=== PATIENT | female | born 1975 ===

== ENCOUNTER 2018-12-02 18:22 | Emergency (ER) | payer OTHER ==
--- NOTE | 2018-12-02 18:42 | ED PDOC ---
HPI: Back Time Seen by Provider: 12/02/18 18:29 Chief Complaint (Nursing): Back Pain Chief Complaint (Provider): Back Pain History Per: Patient History/Exam Limitations: no limitations Onset/Duration Of Symptoms: Days (x1) Current Symptoms Are (Timing): Still Present Additional Complaint(s): Patient is a 43 y/o female with no PMHx who presents to the ED for evaluation of mid, lower back pain onset yesterday. Patient slipped down wooden steps and landed on her back. Patient reports bruising and tenderness on her mid, lower back. Patient denies leg pain, dizziness, headaches, or loss of consciousness. Patient states she took Tylenol for pain relief. PCP: None Provided Past Medical History Reviewed: Historical Data, Nursing Documentation, Vital Signs Vital Signs: Last Vital Signs Temp 97.3 F L 12/02/18 18:24 Pulse 72 12/02/18 18:24 Resp 18 12/02/18 18:24 BP 120/78 12/02/18 18:24 Pulse Ox 98 12/02/18 18:24 - Medical History PMH: No Chronic Diseases - Surgical History Surgical History: No Surg Hx - Family History Family History: States: No Known Family Hx - Home Medications Home Medications: Ambulatory Orders Medication Instructions Recorded Cyclobenzaprine [Flexeril] 10 mg PO TID #27 tab 12/02/18 Diclofenac Potassium 50 mg PO BID #20 tablet 12/02/18 - Allergies Allergies/Adverse Reactions: Allergies Allergy/AdvReac Type Severity Reaction Status Date / Time No Known Allergies Allergy Verified 12/02/18 18:24 Review of Systems ROS Statement: Except As Marked, All Systems Reviewed And Found Negative Musculoskeletal: Positive for: Back Pain (mid, lower). Negative for: Leg Pain Skin: Positive for: Bruising (on mid, lower back) Neurological: Negative for: Headache, Dizziness, Other (loss of consciousness) Physical Exam - Reviewed Nursing Documentation Reviewed: Yes Vital Signs Reviewed: Yes - Physical Exam Appears: Positive for: No Acute Distress Head Exam: Positive for: ATRAUMATIC, NORMAL INSPECTION, NORMOCEPHALIC Skin: Positive for: Normal Color, Warm, DRY Eye Exam: Positive for: EOMI, Normal appearance, PERRL Neck: Positive for: Normal, Painless ROM, Supple Cardiovascular/Chest: Positive for: Regular Rate, Rhythm. Negative for: Murmur Respiratory: Positive for: Normal Breath Sounds (clear auscultation bilaterally). Negative for: Respiratory Distress Gastrointestinal/Abdominal: Positive for: Normal Exam, Soft. Negative for: Tenderness Back: Positive for: Normal Inspection, Vertebral Tenderness (at L4-L5; central line), Muscle Spasm (bilateral paraspinal), Other (mild bruising at L4-L5 of central, lower back; no ridicular; negative lumbar axial loading) Extremity: Positive for: Normal ROM (Upper/Lower), Other (20 degree straight leg raise positive in the left leg). Negative for: Pedal Edema, Deformity Neurologic/Psych: Positive for: Alert, Oriented. Negative for: Motor/Sensory Deficits - ECG O2 Sat by Pulse Oximetry: 98 (RA) Pulse Ox Interpretation: Normal Medical Decision Making Medical Decision Making: Time: 1839 Impression: Acute Back Pain Plan: CT Lumbar Spine w/o Contrast Urine Flexeril 10 mg PO Toradol 60 mg IM Tylenol 650 mg PO Time: 2008 CT Lumbar Spine FINDINGS: ALIGNMENT: Bony alignment is anatomic. There is minimal anterior marginal osteophytic spurring throughout the lumbar vertebrae. The apophyseal facet articulations appeared intact bilaterally throughout. DISCS/DEGENERATIVE CHANGES: T12/L1: No significant central canal or neural foraminal stenosis. L1/L2: No significant central canal or neural foraminal stenosis. L2/L3: No significant central canal or neural foraminal stenosis. L3/4: No significant central canal or neural foraminal stenosis. L4/5: No significant central canal or neural foraminal stenosis. L5/S1: No significant central canal or neural foraminal stenosis. BONES: No acute fracture or aggressive appearing osseous lesion. SOFT TISSUES: The soft tissues are unremarkable. MISCELLANEOUS: No identification of herniated nucleus pulposus. IMPRESSION: 1. No acute lumbar spine abnormality. Electronically signed on Dec 02, 2018 8:09:04 PM EST by: Go Canchola M.D., RADHA Certified By [facility] Fellowship Trained MRI and CT Specialist Pt advised of CT findings above; pt is stable for discharge and was able to ask questions pirior to her didscharge Scribe Attestation: Documented by Mino Quinn, acting as a scribe for POLA Rajput. Provider Scribe Attestation: All medical record entries made by the Scribe were at my direction and personally dictated by me. I have reviewed the chart and agree that the record accurately reflects my personal performance of the history, physical exam, medical decision making, and the department course for this patient. I have also personally directed, reviewed, and agree with the discharge instructions and disposition. Disposition - Clinical Impression Clinical Impression: Low back pain - Patient ED Disposition Is Patient to be Admitted: No Doctor Will See Patient In The: Office Counseled Patient/Family Regarding: Studies Performed, Diagnosis, Need For Followup, Rx Given - Disposition Disposition: Routine/Home Disposition Time: 20:16 Condition: STABLE Additional Instructions: Follow up with your PMD in 48-72 hours Prescriptions: Cyclobenzaprine [Flexeril] 10 mg PO TID #27 tab Diclofenac Potassium 50 mg PO BID #20 tablet Instructions: Low Back Pain (DC), Low Back Pain in Adults Forms: [facility] (Faroese)
[2018-12-02 20:43] VITALS: BP 132/68; PULSE 74; RESP 16; TEMP 98; O2SAT 100
--- NOTE | 2018-12-03 09:30 | CT ---
Date of service: 12/02/2018 PROCEDURE: CT Lumbar Spine without contrast HISTORY: S/P SLIP AND FALL WITH SWELLING ON LMBAR SPINE COMPARISON: None available. TECHNIQUE: Axial computed tomography images were obtained of the lumbar spine without the use of intravenous contrast. Coronal and sagittal reformatted images were created and reviewed. Radiation dose: Total exam DLP = 522.97 mGy-cm. This CT exam was performed using one or more of the following dose reduction techniques: Automated exposure control, adjustment of the mA and/or kV according to patient size, and/or use of iterative reconstruction technique. FINDINGS: VERTEBRAE: Unremarkable. No fracture. Normal alignment. DISCS/SPINAL CANAL/NEURAL FORAMINA: L1-2: Unremarkable. L2-3: Unremarkable. L3-4: Broad-based disc bulge with dorsal ligamentous hypertrophy resulting in mild central canal stenosis. L4-5: Broad-based disc bulge with dorsal ligamentous hypertrophy resulting in mild central canal stenosis. L5-S1: Unremarkable. PARASPINAL SOFT TISSUES: Unremarkable. OTHER FINDINGS: None. IMPRESSION: No acute fracture. Mild lower lumbar degenerative change.
== END 2018-12-02 20:41 | disposition home or self-care (01) ==
LOC: H.ER 18:22
DX: M54.5 Low back pain (principal); W10.9XXA Fall (on) (from) unspecified stairs and steps, initial encounter
CPT/HCPCS: 72131; 81025; 96372; 99282; J1885

== ENCOUNTER 2019-01-13 21:49 | Emergency (ER) | payer OTHER ==
[2019-01-13 21:56] VITALS: BP 122/73; PULSE 71; RESP 16; TEMP 98.2; O2SAT 99
--- NOTE | 2019-01-13 22:04 | ED PDOC ---
HPI: CCC, URI, Sore Throat Time Seen by Provider: 01/13/19 21:57 Chief Complaint (Nursing): ENT Problem History Per: Patient Additional Complaint(s): Pt. states today she developed cough, congestion, sneezing, sore throat, and b/l earache. Also reports feeling chills but has not fever. Has been taking Advil (last dose at 1999 today). Denies chest pain, SOB, hemoptysis, rash, sick contacts, recent travel. Of note, pt. did not get influenza vaccine this season. Past Medical History Reviewed: Historical Data, Nursing Documentation, Vital Signs Vital Signs: Last Vital Signs Temp 98.2 F 01/13/19 21:55 Pulse 71 01/13/19 21:55 Resp 16 01/13/19 21:55 BP 122/73 01/13/19 21:55 Pulse Ox 99 01/13/19 21:55 - Family History Family History: States: No Known Family Hx - Home Medications Home Medications: Ambulatory Orders Medication Instructions Recorded Cyclobenzaprine [Flexeril] 10 mg PO TID #27 tab 12/02/18 Diclofenac Potassium 50 mg PO BID #20 tablet 12/02/18 Benzonatate [Tessalon Perle] 100 mg PO Q8 PRN #10 capsule 01/13/19 Fluticasone Propionate [Flonase] 2 spr NS DAILY PRN #1 bottle 01/13/19 Oseltamivir Cap [Tamiflu] 75 mg PO BID #9 cap 01/13/19 - Allergies Allergies/Adverse Reactions: Allergies Allergy/AdvReac Type Severity Reaction Status Date / Time No Known Allergies Allergy Verified 01/13/19 21:53 Review of Systems ROS Statement: Except As Marked, All Systems Reviewed And Found Negative Constitutional: Positive for: Chills ENT: Positive for: Nose Congestion, Throat Pain Respiratory: Positive for: Cough Physical Exam - Physical Exam Appears: Positive for: Well, Non-toxic, No Acute Distress Skin: Positive for: Normal Color, Warm. Negative for: Rash Eye Exam: Positive for: Normal appearance ENT: Positive for: Normal ENT Inspection. Negative for: Pharyngeal Erythema, Tonsillar Exudate, Tonsillar Swelling Neck: Positive for: Normal (no lymphadenopathy), Painless ROM Cardiovascular/Chest: Positive for: Regular Rate, Rhythm Respiratory: Positive for: Normal Breath Sounds. Negative for: Respiratory Distress Gastrointestinal/Abdominal: Positive for: Normal Exam, Soft. Negative for: Tenderness, Organomegaly Neurologic/Psych: Positive for: Alert, Oriented (x3) - ECG O2 Sat by Pulse Oximetry: 99 - Progress ED Course And Treament: Rapid strep: negative. Tamiflu PO ordered. Disposition - Clinical Impression Clinical Impression: Influenza-like illness - Patient ED Disposition Is Patient to be Admitted: No - Disposition Referrals: [facility] [Outside] Disposition: Routine/Home Disposition Time: 22:04 Condition: STABLE Additional Instructions: FOLLOW UP WITH [facility] FOR FURTHER EVALUATION RETURN TO ED IMMEDIATELY IF SYMPTOMS WORSEN CHARANJIT BASS, thank you for letting us take care of you today. Your provider was Francoise Ray MD and you were treated for EAR PAIN,THROAT PAIN. The emergency medical care you received today was directed at your acute symptoms. If you were prescribed any medication, please fill it and take as directed. It may take several days for your symptoms to resolve. Return to the Emergency Department if your symptoms worsen, do not improve, or if you have any other problems. Please contact your doctor or call one of the physicians/clinics you have been referred to that are listed on the Patient Visit Information form that is included in your discharge packet. Bring any paperwork you were given at discharge with you along with any medications you are taking to your follow up visit. Our treatment cannot replace ongoing medical care by a primary care provider outside of the emergency department. Thank you for allowing the [facility] team to be part of your care today. If you had an X-Ray or CT scan: A Radiologist will review the ED reading if any change in treatment is needed we will contact you. If you had a blood, urine, or wound culture: It will take several days for the results, if any change in treatment is needed we will contact you. If you had an STI test: It will take 48 hours for the results. Please call after 1 week if you have not heard back. Prescriptions: Benzonatate [Tessalon Perle] 100 mg PO Q8 PRN #10 capsule PRN Reason: Cough Fluticasone Propionate [Flonase] 2 spr NS DAILY PRN #1 bottle PRN Reason: Allergy Symptoms Oseltamivir Cap [Tamiflu] 75 mg PO BID #9 cap Instructions: Flu, Adult (DC) Forms: [facility] (Israeli) Print Language: PORTUGUESE
== END 2019-01-13 23:24 | disposition home or self-care (01) ==
LOC: H.ER 21:49
DX: J11.1 Influenza due to unidentified influenza virus with other respiratory manifestations (principal)

== ENCOUNTER 2019-02-25 14:38 | Emergency (ER) | payer OTHER ==
[2019-02-25 15:01] VITALS: BP 105/72; PULSE 62; RESP 18; TEMP 97.9; O2SAT 99
[2019-02-25] MEDS ORDERED: DiphenhydrAMINE 50 mg/ml Inj IM STA (15:19)
--- NOTE | 2019-02-25 15:25 | ED PDOC ---
HPI: Allergic Reaction Time Seen by Provider: 02/25/19 15:04 Chief Complaint (Nursing): Allergic Reaction Chief Complaint (Provider): Allergic Reaction History Per: Patient, Family History/Exam Limitations: no limitations Onset/Duration Of Symptoms: Hrs Current Symptoms Are (Timing): Still Present Possible Cause: Unknown Additional Complaint(s): 44 y/o female states that approximately around 1 PM today, her daughter noticed a rash to her right leg that has progressively worsened and diffusely spread throughout the body. Daughter notes patient took 2 capsules of Benadryl at 1:30 with mild relief of symptoms. However, patient states symptoms returned after showering. Otherwise, patient denies history of previous allergic reaction, fever, throat swelling, shortness of breath, chest pain, history of anaphylactic reactions. PMD: no provider Past Medical History Reviewed: Historical Data, Nursing Documentation, Vital Signs Vital Signs: Last Vital Signs Temp 97.9 F 02/25/19 14:58 Pulse 62 02/25/19 14:58 Resp 18 02/25/19 14:58 BP 105/72 02/25/19 14:58 Pulse Ox 99 02/25/19 14:58 - Medical History PMH: No Chronic Diseases - Surgical History Surgical History: No Surg Hx - Family History Family History: States: Unknown Family Hx - Home Medications Home Medications: Ambulatory Orders Medication Instructions Recorded Cyclobenzaprine [Flexeril] 10 mg PO TID #27 tab 12/02/18 Diclofenac Potassium 50 mg PO BID #20 tablet 12/02/18 Benzonatate [Tessalon Perle] 100 mg PO Q8 PRN #10 capsule 01/13/19 Fluticasone Propionate [Flonase] 2 spr NS DAILY PRN #1 bottle 01/13/19 Oseltamivir Cap [Tamiflu] 75 mg PO BID #9 cap 01/13/19 DiphenhydrAMINE [Benadryl] 50 mg PO Q6 PRN #12 cap 02/25/19 predniSONE [Prednisone] 40 mg PO DAILY #8 tab 02/25/19 - Allergies Allergies/Adverse Reactions: Allergies Allergy/AdvReac Type Severity Reaction Status Date / Time No Known Allergies Allergy Verified 01/13/19 21:53 Review of Systems ROS Statement: Except As Marked, All Systems Reviewed And Found Negative Constitutional: Negative for: Fever ENT: Negative for: Throat Swelling Cardiovascular: Negative for: Chest Pain Respiratory: Negative for: Shortness of Breath Skin: Positive for: Rash Physical Exam - Reviewed Nursing Documentation Reviewed: Yes Vital Signs Reviewed: Yes - Physical Exam Appears: Positive for: No Acute Distress Skin: Positive for: Rash (diffuse urticarial rash with blanching to the body. ) Eye Exam: Positive for: Normal appearance, EOMI, PERRL ENT: Positive for: Normal ENT Inspection Neck: Positive for: Normal Cardiovascular/Chest: Positive for: Regular Rate, Rhythm. Negative for: Murmur Respiratory: Positive for: Normal Breath Sounds. Negative for: Respiratory Distress Neurological/Psych: Positive for: Awake, Alert, Oriented (x3), Other (speaking full sentences) - ECG O2 Sat by Pulse Oximetry: 99 (RA) Pulse Ox Interpretation: Normal - Progress ED Course And Treament: Time: 1519 Plan: -- Benadryl 50 mg IM -- Pepcid 20 mg PO -- PredniSONE 40 mg PO -- Patient advised to follow up with PMD for possible allergy testing. Scribe Attestation: Documented by Bassam iHnton, acting as a scribe Kvng Ye PA-C. Provider Scribe Attestation: All medical record entries made by the Scribe were at my direction and personally dictated by me. I have reviewed the chart and agree that the record accurately reflects my personal performance of the history, physical exam, medical decision making, and the department course for this patient. I have also personally directed, reviewed, and agree with the discharge instructions and disposition. Condition: Re-examined, Improved Disposition - Clinical Impression Clinical Impression: Allergic reaction - Patient ED Disposition Is Patient to be Admitted: No - Disposition Referrals: [facility] [Outside] Disposition: Routine/Home Disposition Time: 15:40 Condition: IMPROVED Additional Instructions: FOLLOW UP WITH YOUR DOCTOR FOR FURTHER EVALUATION RETURN TO ED IMMEDIATELY IF SYMPTOMS WORSEN CHARANJIT BASS, thank you for letting us take care of you today. Your provider was Sonu Thomas MD and you were treated for POSS ALLERGIC REACTION. The emergency medical care you received today was directed at your acute symptoms. If you were prescribed any medication, please fill it and take as directed. It may take several days for your symptoms to resolve. Return to the Emergency Department if your symptoms worsen, do not improve, or if you have any other problems. Please contact your doctor or call one of the physicians/clinics you have been referred to that are listed on the Patient Visit Information form that is included in your discharge packet. Bring any paperwork you were given at discharge with you along with any medications you are taking to your follow up visit. Our treatment cannot replace ongoing medical care by a primary care provider outside of the emergency department. Thank you for allowing the [facility] team to be part of your care today. If you had an X-Ray or CT scan: A Radiologist will review the ED reading if any change in treatment is needed we will contact you. If you had a blood, urine, or wound culture: It will take several days for the results, if any change in treatment is needed we will contact you. If you had an STI test: It will take 48 hours for the results. Please call after 1 week if you have not heard back. Prescriptions: DiphenhydrAMINE [Benadryl] 50 mg PO Q6 PRN #12 cap PRN Reason: itching or rash predniSONE [Prednisone] 40 mg PO DAILY #8 tab Instructions: Lucila (DC) Print Language: OCCITAN
[2019-02-25] MEDS ORDERED: DiphenhydrAMINE 50 mg/ml Inj ONE (15:28)
== END 2019-02-25 16:29 | disposition home or self-care (01) ==
LOC: H.ER 14:38
DX: T78.40XA Allergy, unspecified, initial encounter (principal)
CPT/HCPCS: 81025; 96372; 99283; J1200

== ENCOUNTER 2019-03-03 15:32 | Emergency (ER) | payer OTHER ==
[2019-03-03 15:52] VITALS: BP 118/61; PULSE 61; RESP 17; TEMP 97.7; O2SAT 99
--- NOTE | 2019-03-03 16:19 | ED PDOC ---
HPI: General Adult Time Seen by Provider: 03/03/19 15:56 Chief Complaint (Nursing): Upper Extremity Problem/Injury Chief Complaint (Provider): Bodyaches History Per: Patient History/Exam Limitations: no limitations Onset/Duration Of Symptoms: Days (2x days) Have you had recent travel within the past 21 days to any of the following countries: [place], [place], [place] or [place]?: No Current Symptoms Are (Timing): Still Present Severity: Moderate Additional Complaint(s): 44 year old female with no pertinent past medical history presents to the ED for an evaluation of bodyaches that started yesterday. Patient states that she has been experiencing bilateral arm, and bilateral knee pain for the past 2x days. She reports the pain is in her joints. Patient states that today the pain is mostly to her left arm today. Patient states that this morning she had bilateral hand swelling. Patient was see in the ED 1x week ago for a rash which has resolved after taking benadryl. Otherwise: (-) injuries, falls, neck pain, fevers, congestion, urinary symptoms, recent travel, allergies to medications. LMP: Last week PMD: [facility] Past Medical History Reviewed: Historical Data, Nursing Documentation, Vital Signs Vital Signs: Last Vital Signs Temp 97.7 F 03/03/19 15:48 Pulse 61 03/03/19 15:48 Resp 17 03/03/19 15:48 BP 118/61 03/03/19 15:48 Pulse Ox 99 03/03/19 15:48 DERRELL Report Viewed: Yes - Medical History PMH: No Chronic Diseases Denies: Arthritis, Diabetes, HTN - Family History Family History: States: No Known Family Hx - Social History Current smoker - smoking cessation education provided: No Alcohol: None Drugs: Denies - Home Medications Home Medications: Ambulatory Orders Medication Instructions Recorded Cyclobenzaprine [Flexeril] 10 mg PO TID #27 tab 12/02/18 Diclofenac Potassium 50 mg PO BID #20 tablet 12/02/18 Benzonatate [Tessalon Perle] 100 mg PO Q8 PRN #10 capsule 01/13/19 Fluticasone Propionate [Flonase] 2 spr NS DAILY PRN #1 bottle 01/13/19 Oseltamivir Cap [Tamiflu] 75 mg PO BID #9 cap 01/13/19 DiphenhydrAMINE [Benadryl] 50 mg PO Q6 PRN #12 cap 02/25/19 predniSONE [Prednisone] 40 mg PO DAILY #8 tab 02/25/19 Naproxen 500 mg PO BID #20 tab 03/03/19 - Allergies Allergies/Adverse Reactions: Allergies Allergy/AdvReac Type Severity Reaction Status Date / Time No Known Allergies Allergy Verified 01/13/19 21:53 Review of Systems ROS Statement: Except As Marked, All Systems Reviewed And Found Negative Constitutional: Positive for: Other (bodyaches: primarily left arm, also to right arm, lower extremities, back, and neck.) Physical Exam - Reviewed Nursing Documentation Reviewed: Yes Vital Signs Reviewed: Yes - Physical Exam Comments: GENERAL APPEARANCE: Patient is awake, alert, oriented x 3, in no acute distress. SKIN: Warm, dry; (-) cyanosis. ENMT: Mucous membranes moist. Airway patent: (-) stridor. Pharynx: (-) swelling, (-) erythema, (-) exudate. CHEST AND RESPIRATORY: (-) chest wall tenderness. Lungs: (-) rales, (-) rhonchi, (-) wheezes; breath sounds equal bilaterally. HEART AND CARDIOVASCULAR: (-) irregularity; (-) murmur, (-) gallop. BACK: (-) tenderness, (-) spasm, (-) direct bony tenderness, (-) deformity EXTREMITIES: Full ROM of all extremities. pulses 2+, capillary refill <2 seconds of bilateral upper and lower extremities. (-) swelling, (-) rash. (+) reproducible tenderness of joints, bilateral elbows, bilateral knees, and primarily left wrist and elbow pain, no deformities, no signs of infection, NVI NEURO AND PSYCH: Mental status as above. - ECG O2 Sat by Pulse Oximetry: 99 (RA) Pulse Ox Interpretation: Normal - Radiology X-Ray: Viewed By Me, Read By Radiologist (see MDM note) Medical Decision Making Medical Decision Makin:56 Initial impression: 44 year old female with bodyaches Initial plan: * XRay elbow left * XRay wrist left 3 views * glucose, POC * upreg * toradol 30 mg IM * reevaluation 16:39 XRay elbow read and reviewed by radiologist FINDINGS: BONES: Normal. No fracture. JOINTS: Normal. No osteoarthritis. SOFT TISSUES: Normal. JOINT EFFUSION: None. OTHER FINDINGS: None IMPRESSION: No evidence of fracture, loose body, or joint effusion. No significant epicondylitis. 16:40 XRay wrist read and reviewed by radiologist FINDINGS: BONES: Normal. No fracture. Minimal amount of subchondral cyst formation is not excluded in the distal radius. JOINTS: Normal. No dislocation. SOFT TISSUES: Normal. OTHER FINDINGS: No abnormal carpal bone widening. No erosion is seen. No chondrocalcinosis or loose body is noted. Visualized metacarpals are intact. IMPRESSION: No evidence of fracture. No plain film evidence of inflammatory arthritis. 17:20 on re eval pt reports improved pain XRs dont show signs of inflammatory arthritis, pt has no swelling or erythema to joints, no fever, VSS, glucose is 110 Discussed results, diagnosis, treatment, return precautions and f/u with pt who is understanding, in agreement and stable for dc Scribe Attestation: Documented by Vane Gilliland, acting as a scribe for Keyur Diehl PA-C. Provider Scribe Attestation: All medical record entries made by the Scribe were at my direction and personally dictated by me. I have reviewed the chart and agree that the record accurately reflects my personal performance of the history, physical exam, medical decision making, and the department course for this patient. I have also personally directed, reviewed, and agree with the discharge instructions and disposition. Disposition - Clinical Impression Clinical Impression: Subchondral bone cyst, Body aches - Patient ED Disposition Is Patient to be Admitted: No Counseled Patient/Family Regarding: Studies Performed, Diagnosis, Need For Followup, Rx Given - Disposition Referrals: [facility] [Outside] Disposition: Routine/Home Disposition Time: 17:30 Condition: IMPROVED Additional Instructions: Thank you for letting us take care of you today. Take medication as prescribed. Rest, drink plenty of fluids. Follow up with your doctor. Return to ED for new or worsening symptoms, fever >100.4, numbness or tingling, changes in skin color, unable to move arms or legs. The emergency medical care you received today was directed at your acute symptoms. If you were prescribed any medication, please fill it and take as directed. It may take several days for your symptoms to resolve. Return to the Emergency Department if your symptoms worsen, do not improve, or if you have any other problems. Please contact your doctor in 2 days for re-evaluation and follow up / or call one of the physicians/clinics you have been referred to that are listed on the Patient Visit Information form that is included in your discharge packet. Bring any paperwork you were given at discharge with you along with any medications you are taking to your follow up visit. Our treatment cannot replace ongoing medical care by a primary care provider (PCP) outside of the emergency department. Keyla por dejarnos cuidar de ti hoy. [place] la medicacin segn lo prescrito. Descansa, izabela muchos lquidos. Bull un seguimiento con anne mdico. Regrese a la ED para sntomas nuevos o que empeoran, fiebre> 100.4, entumecimiento u hormigueo, cambios en el color de la piel, incapacidad para clamp remover los brazos o las piernas. La atencin mdica de emergencia que recibi hoy se dirigi a herminio sntomas agudos. Si le recetaron algn medicamento, llnelo y tmelo segn las indicaciones. Los sntomas pueden tardar varios holman en resolverse. Regrese al Departamento de Emergencias si herminio sntomas empeoran, no mejoran o si tiene otros problemas. Comunquese con anne mdico dentro de 2 holman para ronaldo nueva evaluacin y bull un seguimiento o llame a rosa de los mdicos / clnicas a los que vides sido referido y que figuran en el formulario de Informacin de visita al paciente que se incluye en anne paquete de xiomy. Lleve todos los documentos que recibi al momento del xiomy junto con los medicamentos que est tomando para anne visita de seguimiento. Nuestro tratamiento no puede reemplazar la atencin mdica continua por parte de un proveedor de atencin primaria (PCP) fuera del departamento de emergencias. Prescriptions: Naproxen 500 mg PO BID #20 tab Instructions: Muscle and Bone Pain (DC), Joint Pain Forms: [facility] ([place]) Print Language: MALAY - POA Present On Arrival: None
--- NOTE | 2019-03-03 16:42 | RAD ---
Date of service: 03/03/2019 PROCEDURE: Radiographs of the left elbow. HISTORY: pain COMPARISON: No prior. TECHNIQUE: 3 views of the left elbow were obtained. FINDINGS: BONES: Normal. No fracture. JOINTS: Normal. No osteoarthritis. SOFT TISSUES: Normal. JOINT EFFUSION: None. OTHER FINDINGS: None IMPRESSION: No evidence of fracture, loose body, or joint effusion. No significant epicondylitis.
--- NOTE | 2019-03-03 16:44 | RAD ---
Date of service: 03/03/2019 PROCEDURE: Left Wrist Radiographs. HISTORY: pain COMPARISON: None. TECHNIQUE: 4 views of the left wrist were obtained. FINDINGS: BONES: Normal. No fracture. Minimal amount of subchondral cyst formation is not excluded in the distal radius. JOINTS: Normal. No dislocation. SOFT TISSUES: Normal. OTHER FINDINGS: No abnormal carpal bone widening. No erosion is seen. No chondrocalcinosis or loose body is noted. Visualized metacarpals are intact. IMPRESSION: No evidence of fracture. No plain film evidence of inflammatory arthritis.
== END 2019-03-03 17:33 | disposition home or self-care (01) ==
LOC: H.ER 15:32
DX: M85.40 Solitary bone cyst, unspecified site (principal); M79.10 Myalgia, unspecified site
CPT/HCPCS: 73080; 73110; 81025; 82948; 96372; 99283; J1885